=== PATIENT | female | born 1975 | race Native Hawaiian/Other Pacific Islander ===

== ENCOUNTER 2018-03-08 22:41 | Emergency (ER) | payer OTHER ==
[2018-03-08 22:52] VITALS: TEMP 98
[2018-03-08] MEDS ORDERED: Silver Sulfadiazine 1% Cream (20 gm) ONE (23:25)
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
[2018-03-09 00:32] VITALS: BP 114/64; PULSE 71; RESP 16
[2018-03-09 01:54] VITALS: O2SAT 99
== END 2018-03-09 00:30 | disposition home or self-care (01) ==
LOC: C.ER 22:41
DX: T23.211A Burn of second degree of right thumb (nail), initial encounter (principal); T23.132A Burn of first degree of multiple left fingers (nail), not including thumb, initial encounter; T25.121A Burn of first degree of right foot, initial encounter; X15.8XXA Contact with other hot household appliances, initial encounter; Y92.89 Other specified places as the place of occurrence of the external cause